=== PATIENT | female | born 1950 | race Caucasian/White ===

== ENCOUNTER 2025-02-18 04:42 | Observation (INO) | payer MEDICARE, OTHER, SELFPAY ==
[2025-02-17 22:41] VITALS: BP 185/96
[2025-02-17 23:07] LABS: Hematocrit 42.1 % (37.0-47.0); Hemoglobin 13.9 g/dL (12.0-16.0); Mean Corp Hgb Conc. 33.0 g/dL (33.0-37.0); Mean Corpuscular Volume 90.9 fL (81.0-99.0); Nucleated Red Blood Cells % 0 %; Platelet Count 244 10^3/uL (130-400); Red Cell Dist. Width 13.2 % (11.5-14.5)
[2025-02-17 23:27] LABS: ALT (SGPT) 19 U/L (0-35); AST (SGOT) 26 U/L (14-36); Albumin 4.5 g/dl (3.5-5.0); Alkaline Phosphatase 71 U/L (38-126); Blood Urea Nitrogen 17 mg/dl (7-17); Calcium 9.4 mg/dl (8.4-10.2); Carbon Dioxide 32 mmol/L (22-30); Chloride 101 mmol/L (98-107); Glucose 189 mg/dl (70-99); Lipase 247 U/L (23-300); Potassium 4.1 mmol/L (3.5-5.1); Sodium 141 mmol/L (135-145); Total Protein 6.9 g/dl (6.3-8.2); eGFR > 60.00
[2025-02-18] VITALS (21 sets, daily range): BP systolic 138–217; BP diastolic 56–82; BMI 29.3; BMI 28.5
--- NOTE | 2025-02-18 00:17 | ED.GENMED ---
Addendum entered and electronically signed by Rom Owusu DO 02/18/25 07:00:
Note:
CHIEF COMPLAINT(S)
Blood pressure issues.
HISTORY OF PRESENT ILLNESS
The patient is a 74-year-old female presenting with elevated blood pressure. Her condition has improved slightly, as noted by the statement, 'your blood pressures coming down.' The plan includes a hospital stay to ensure stabilization and evaluation
before discharge. The patient mentioned her son visiting and returning home to sleep before going to work, indicating family involvement and support during her hospital visit.
PHYSICAL EXAM
- General: Alert, no acute distress.
- Skin: Warm, dry.
- Head: Normocephalic, atraumatic.
- Neck: Supple, trachea midline.
- Eye, Ears, Nose, Mouth, and Throat: Oral mucosa moist.
- Cardiovascular: Normal peripheral perfusion, No edema.
- Respiratory: Respirations are non-labored.
- Gastrointestinal: Abdomen nondistended
- Back: Normal range of motion, Normal alignment.
- Musculoskeletal: Normal range of motion, normal strength.
- Neurological: Alert and oriented to person, place, time, and situation, No focal neurological deficit observed.
- Psychiatric: Cooperative, appropriate mood & affect.
PLAN
The plan is for the patient to be admitted to the hospital for further monitoring and to ensure stabilization of blood pressure before considering discharge.
DIFFERENTIAL DIAGNOSIS
The Differential Diagnosis includes, in no particular order and is not limited to:
- Hypertension
- Hypertensive crisis
- Anxiety-related blood pressure elevation
- Cardiovascular disease
- Renal artery stenosis
- Primary hyperaldosteronism
- Pheochromocytoma
- Endocrine disorders
- Medication effects or interactions
- Dehydration
Patient was seen in conjunction with the PA. I have reviewed and agree with his history and treatment plan.
Original Note:
History of Present Illness
<Adilson Elizabeth PA-C - Last Filed: 02/18/25 05:20>
General
Chief Complaint: Blood Pressure Problem
Time Seen by Provider: 02/18/25 00:02
History of Present Illness
History of Present Illness:
74-year-old female with history of hypertension, hyperlipidemia, and qoe-pftnbet-ujpqueswx diabetes presents to the emergency department for evaluation of abrupt onset of lightheadedness, sweating, and nausea with vomiting that occurred this
evening. States it occurred sometime after dinner. There was no associated chest pain, shortness of breath, or abdominal pain. Her symptoms are improved at this time. Denies any falls but felt very unsteady. Has been compliant with her blood
pressure medicines today but states that she noted a markedly elevated blood pressure on a home cuff episode greater than 240/110.
Review of Systems
<Adilson Elizabeth PA-C - Last Filed: 02/18/25 05:20>
Review of Systems
Allergies reviewed?: Yes
All Other Systems: ROS reviewed and negative except as documented in HPI and ROS
Phy Exam
<Adilson Elizabeth PA-C - Last Filed: 02/18/25 05:20>
Physical Exam
Physical Exam:
GEN: Well appearing, NAD, WDWN
HEENT: Oral mucosa moist, no scleral icterus, no nasal congestion
Cardiac: Regular rate
Lung: No respiratory distress, no tachypnea
MSK: No gross deformity or injuries
Skin: Good color, no pallor or jaundice, no rashes
Neuro: AO x3; CN II-XII grossly intact. BUE strength 5/5 in all ellis, sensation intact and symmetric. BLE strength 5/5 in all ellis, sensation intact and symmetric. Gait steady
Psych: Calm, cooperative
Course
<Adilson Elizabeth PA-C - Last Filed: 02/18/25 05:20>
Orders/Labs/Results
Orders:
Orders
02/17/25 22:45
EKG [Electrocardiogram (*1)] Urgent
Reason for Study: Hypertension, Benign
02/17/25 22:46
EKG- Treatment ONCE
02/17/25 22:59
Complete Blood Count/With Diff Urgent
Comprehensive Metabolic Panel Urgent
Lipase Urgent
02/18/25 00:39
Troponin I Urgent
02/18/25 01:34
HydrALAZINE [Apresoline] 10 mg IV NOW STA
02/18/25 01:53
CT Head W/o Iv Contrast Urgent
Comment:
Reason For Exam: HTN crisis w/ dizziness
02/18/25 04:11
Acetaminophen [Tylenol] 650 mg PO NOW STA
02/18/25 04:15
Admit/Transfer Patient As Directed
Co-Sign Provider:
Level of Care: Observation services
Assign to:: Telemetry
Physician / Group: Lul
Diagnosis: Hypertensive urgency
Reason for Telemetry: Other
Other Reason for Telemetry: hypertensive urgency
Date to Stop Telemetry: 02/20/25
Time to Stop Telemetry: 11:00
PRN Pain Medication Management As Directed
May give lesser potent ordered pain med per pt: Yes
preference::
Protocol:: Medication orders for pain may be administered in a
manner that supports deferring to patient preference
when the pt is:
- Requesting an ordered lesser potent pain medication.
Least to most potent pain medications are defined
as: acetaminophen < NSAID < tramadol < opioids
(morphine, oxycodone, hydromorphone).
- Requesting a lesser dose of the same medication IF
ORDERED.
- Requesting a less intrusive route of administration
if both routes are prescribed by the provider (PO <
IV).
02/18/25 04:16
Code Status As Directed
Resuscitation Status: Full Code
02/20/25 11:00
DC Protocol for Telemetry ONCE
Abnormal Lab Results
02/17/25
22:59
WBC 12.8 H 10^3/uL
(4.8-10.8)
Absolute Neuts (auto) 8.9 H 10^3/uL
(1.4-6.5)
Absolute Monos (auto) 0.9 H 10^3/uL
(0.1-0.6)
Carbon Dioxide 32 H mmol/L
(22-30)
Glucose 189 H mg/dl
(70-99)
02/17/25 22:59
02/17/25 22:59
Vital Signs
Initial and Last Documented VS:
Initial Vital Signs
Temp Pulse Resp BP Pulse Ox
97.7 F 66 20 185/96 98
02/17/25 22:41 02/17/25 22:41 02/17/25 22:41 02/17/25 22:41 02/17/25 22:41
Last Documented Vital Signs
Temp Pulse Resp BP Pulse Ox
97.7 F 66 18 157/66 95
02/17/25 22:41 02/18/25 01:43 02/18/25 01:18 02/18/25 03:30 02/18/25 00:19
<Rom Owusu, DO - Last Filed: 02/18/25 03:32>
Orders/Labs/Results
Orders:
Orders
02/17/25 22:45
EKG [Electrocardiogram (*1)] Urgent
Reason for Study: Hypertension, Benign
02/17/25 22:46
EKG- Treatment ONCE
02/17/25 22:59
Complete Blood Count/With Diff Urgent
Comprehensive Metabolic Panel Urgent
Lipase Urgent
02/18/25 00:39
Troponin I Urgent
02/18/25 01:34
HydrALAZINE [Apresoline] 10 mg IV NOW STA
02/18/25 01:53
CT Head W/o Iv Contrast Urgent
Comment:
Reason For Exam: HTN crisis w/ dizziness
02/18/25 04:11
Acetaminophen [Tylenol] 650 mg PO NOW STA
02/18/25 04:15
Admit/Transfer Patient As Directed
Co-Sign Provider:
Level of Care: Observation services
Assign to:: Telemetry
Physician / Group: Lul
Diagnosis: Hypertensive urgency
Reason for Telemetry: Other
Other Reason for Telemetry: hypertensive urgency
Date to Stop Telemetry: 02/20/25
Time to Stop Telemetry: 11:00
PRN Pain Medication Management As Directed
May give lesser potent ordered pain med per pt: Yes
preference::
Protocol:: Medication orders for pain may be administered in a
manner that supports deferring to patient preference
when the pt is:
- Requesting an ordered lesser potent pain medication.
Least to most potent pain medications are defined
as: acetaminophen < NSAID < tramadol < opioids
(morphine, oxycodone, hydromorphone).
- Requesting a lesser dose of the same medication IF
ORDERED.
- Requesting a less intrusive route of administration
if both routes are prescribed by the provider (PO <
IV).
02/18/25 04:16
Code Status As Directed
Resuscitation Status: Full Code
02/20/25 11:00
DC Protocol for Telemetry ONCE
Abnormal Lab Results
02/17/25
22:59
WBC 12.8 H 10^3/uL
(4.8-10.8)
Absolute Neuts (auto) 8.9 H 10^3/uL
(1.4-6.5)
Absolute Monos (auto) 0.9 H 10^3/uL
(0.1-0.6)
Carbon Dioxide 32 H mmol/L
(22-30)
Glucose 189 H mg/dl
(70-99)
02/17/25 22:59
02/17/25 22:59
Vital Signs
Initial and Last Documented VS:
Initial Vital Signs
Temp Pulse Resp BP Pulse Ox
97.7 F 66 20 185/96 98
02/17/25 22:41 02/17/25 22:41 02/17/25 22:41 02/17/25 22:41 02/17/25 22:41
Last Documented Vital Signs
Temp Pulse Resp BP Pulse Ox
97.7 F 66 18 157/66 95
02/17/25 22:41 02/18/25 01:43 02/18/25 01:18 02/18/25 03:30 02/18/25 00:19
<Adilson Elizabeth PA-C - Last Filed: 02/18/25 05:20>
MDM/Problems Addressed
MDM/Problems Addressed:
74-year-old female presents with sudden onset of dizziness and nausea with vomiting. Suspect this was a acute hypertensive crisis evidenced by the patient's markedly elevated blood pressure, she is symptomatic and feels her blood pressure [place]
markedly elevated. No chest pain to suggest ACS. Due to advanced age and gait instability will admit for hypertensive crisis
<Adilson Elizabeth PA-C - Last Filed: 02/18/25 05:20>
Comment
Comment:
EKG independently interpreted by me shows normal sinus rhythm at a rate of [address] changes suspicious for ischemia
*Pulse Oximetry
SaO2: 98
Oxygen Mode of Delivery: Room air
Patient hypoxic: no
*Critical Care Note
Total Time (30-74mins, 75-104mins- exclusive of procedures): Not Applicable
ED Attending Note
<Adilson Elizabeth PA-C - Last Filed: 02/18/25 05:20>
-
Portions of this chart may have been created with voice recognition software.� Occasional wrong word or��sound alike� substitutions may have occurred due to the inherent limitations of voice recognition software.
<Rom Owusu DO - Last Filed: 02/18/25 03:32>
ED Attending Note
Patient seen and examined by attending physician: Yes
I performed the substantive portion of visit, reviewed & personally made and approve the management plan that is documented in note by myself or JHONATAN.: Yes
ED Attending Note:
74-year-old female admitted to the hospitalist service for hypertension, and hypertensive urgency. Patient had headache which has improved. Patient has no complaints at time of exam. Patient was seen in conjunction with the PA. I have reviewed
and agree with his history and treatment plan. On my independent physical exam patient awake, alert, and oriented x 3. She does state that her symptoms have mostly resolved. She is resting comfortably. No respiratory distress. Patient to be
admitted to the hospitalist service
Discharge Plan
Departure
Patient Disposition: Admit
Date of Disposition: 02/18/25
Time of Disposition: 02:59
Admit to: Telemetry
Presentation/result/management discussed w/ accepting MD/DO: Hospitalist
Discharge Problem:
Hypertensive urgency
Interventions
Interventions:
*General Assessment Last Done: 02/17/25 22:41
*Neglect/Abuse Screening Last Done: 02/17/25 22:41
*ED COVID-19 Vaccine History Last Done: 02/18/25 00:19
*ED Influenza Vaccine History Last Done: 02/18/25 00:19
[facility] Risk Assessment Tool Last Done: 02/18/25 00:19
*Risk Screen - Suicide (C-SSRS) Last Done: 02/17/25 22:41
ED- Cardiac Assessment Last Done: 02/18/25 00:19
ED- Neurological Assessment Last Done: 02/18/25 02:38
ED- Pulmonary Assessment Last Done: 02/18/25 00:19
[2025-02-18 01:32] LABS: Troponin I 0.015 ng/ml
[2025-02-18] MEDS: APRESOLINE 10 MG IV (01:43)
--- NOTE | 2025-02-18 04:04 | HPS.HSE ---
Family Physician
-
Family Physician: Stan Magaña, DO
Chief Complaint
-
Elevated blood pressure
History of Present Illness
This is a 74-year-old woman who has a past medical history significant for nrl-fxrwueb-mvncmcmqt diabetes, hypertension, hyperlipidemia, who presents to the emergency department with episode of for elevated blood pressure.
Patient reported that she developed dizziness few hours prior to coming to the emergency department after came to take her grandchildren away. She reported that she tried to lay down and dizziness worsened. It feels more like a lightheadedness
ride and vertigo. She reports having a headache. She denies any blurry vision. She denies any double vision. She denies any numbness or tingling. She denies any focal weakness. She reported that she went to check her blood pressure and it was
217/140. She reported that she usually uses her blood pressure medications as prescribed and has not missed any doses recently. She reports that she was seen by auto dismantler about 2 weeks ago and did have elevated blood pressure on initial arrival
in the office but with blood pressure check later on after sitting down and having a discussion with auto dismantler was normal around 140/70. She states that she has been around 140/70 at home for the last 1 year and has stopped checking her blood
pressures regularly. She denies any dietary indiscretion. Patient denies any urinary symptoms.
In ED she was hypertenisve to 216 systolic, pulse rate was 66, she was satting 97% on room air. She was afebrile. ECG shows normal sinus rhythm at rate of [address] or T wave changes. No morphological changes. CT of the head showed
no acute interval changes.
She had a white count of 12.8, hemoglobin and liver normal. Electrolytes were normal, BUN and creatinine were normal. Hepatitis B dose of hydralazine her blood pressure slowly trended down and is now 157/66. Her symptoms are improved and she
states she is no longer having dizziness. She still has a mild headache.
Medical History
Past Medical History
Past Medical History: Reports HTN, Hypercholesterolemia, NIDDM and Other (New macular degeneration)
Past Surgical History: Reports Tonsilectomy and Other (Retinal surgery, right breast lumpectomy)
Social History
Tobacco: Non-smoker
Alcohol: Occasional
Drug: None
Personal:
Living: Alone
Employment: Retired
Family History
Family History: Not pertinent
Allergies / Home Medications
Allergies reflects when Allergies were last updated in [facility].
Home Medications with original date entered in [facility]
Allergy/Medication List:
Allergies
Allergy/AdvReac Type Severity Reaction Status Date / Time
No Known Allergies Allergy Unverified 02/17/25 22:40
Home Medications
atorvastatin 40 mg tablet 40 mg PO DAILY 02/18/25
bisoprolol fumarate 10 mg tablet 10 mg PO BID 02/18/25
hydrochlorothiazide 25 mg tablet 25 mg PO DAILY 02/18/25
metformin 500 mg tablet,extended release 24 hr 2,000 mg PO DAILY 02/18/25
Review of Systems
-
Constitutional: Reports No Symptoms
EENT: Reports No Symptoms
Respiratory: Reports No Symptoms
Cardiac: Reports No Symptoms
Abdomen/GI: Reports No Symptoms
: Reports No Symptoms
Musculoskeletal: Reports No Symptoms
Skin: Reports No Symptoms
Neurological: Reports Dizzy and Headache
Endocrine: Reports No Symptoms
Hematologic/Lymphatic: Reports No Symptoms
Psych: Reports No Symptoms
Physical Exam
Vital Signs
Vital Signs
Temp Pulse Resp BP Pulse Ox
97.7 F 66 18 157/66 95
02/17/25 22:41 02/18/25 01:43 02/18/25 01:18 02/18/25 03:30 02/18/25 00:19
Physical Exam
General: Well Developed, Well Nourished and No Apparent Distress
HEENT: NormoCephalic, Moist mucous membranes and Atraumatic
Respiratory: Clear
Cardiac: S1/S2 and Regular Rhythm; No Murmur or Rub
GI: Soft, Non Tender, Non Distended and Normal Bowel Sounds; No Organomegaly
Rectal: Deferred by Provider
Musculoskeletal: No Clubbing, No Cyanosis and No Edema
Skin: No Rash
Neuro: AO x 3 and Nonfocal/grossly intact
Laboratory Results
-
02/17/25 22:59
02/17/25 22:59
Laboratory Results
Total Bilirubin 0.5 mg/dl (0.2-1.3) 02/17/25 22:59
AST 26 U/L (14-36) 02/17/25 22:59
ALT 19 U/L (0-35) 02/17/25 22:59
Alkaline Phosphatase 71 U/L (38-126) 02/17/25 22:59
Troponin I 0.015 ng/ml 02/18/25 00:39
Lipase 247 U/L (23-300) 02/17/25 22:59
Data Reviewed
-
CT Scan: Report Reviewed by me
Medical Tests (Nuc Med, Echo, EKG etc): Image Personally Visualized and interpreted
Lab Data: Labs Reviewed by me
Old Records: Reviewed
Impression/Plan
-
IMPRESSION:
74 y.o female with h/o HTN, HLD and NIDDM presenting with uncontrolled HTN, dizziness and headache c/w HTN urgency. SBP was 216/140 prior to arrival. ECG unremarkable. CT head unremarkable. Neurologically intact. NO chest pain. Reports
compliance. Symptoms improved after hydralzine with control of bp to 157/66
PLAN:
Hypertensive urgency
- admit to telemetry observation
- continue hydralazine 10mg iv prn
- continue patients bisoprolol and hctz for now
- if requiring additional doses of hydralazine, start additional bp meds such as norvasc
- serial examination
DM II
- continue metformin for now
- sliding scale insulin
- continue atorvastatin
DVT PPX - SCD
Code status - Full Code
[2025-02-18] MEDS: TYLENOL 650 MG PO ×2 (04:30→15:31)
--- NOTE | 2025-02-18 07:08 | PTCARENOTE ---
Pt recieved from ED. A and Ox3. Bed alarm plugged in, call lund within reach.
[2025-02-18 09:14] LABS: Hematocrit 42.0 % (37.0-47.0); Hemoglobin 14.6 g/dL (12.0-16.0); Mean Corp Hgb Conc. 34.8 g/dL (33.0-37.0); Mean Corpuscular Volume 89.9 fL (81.0-99.0); Platelet Count 269 10^3/uL (130-400); Red Cell Dist. Width 13.1 % (11.5-14.5)
[2025-02-18 09:42] LABS: Blood Urea Nitrogen 15 mg/dl (7-17); Calcium 9.5 mg/dl (8.4-10.2); Carbon Dioxide 29 mmol/L (22-30); Chloride 100 mmol/L (98-107); Estimated Creatinine Clearance 85 ml/min; Glucose 140 mg/dl (70-99); Potassium 3.6 mmol/L (3.5-5.1); Sodium 140 mmol/L (135-145); eGFR > 60.00
[2025-02-18] MEDS: LIPITOR 40 MG PO (10:20)
[2025-02-18] MEDS: GLUCOPHAGE XR EXTENDED RELEASE 2000 MG PO (10:20)
[2025-02-18] MEDS: ORETIC 25 MG PO (10:22)
[2025-02-18] MEDS: ZEBETA 10 MG PO ×2 (10:22→19:45)
--- NOTE | 2025-02-18 11:48 | W.PN.HOSP.TC ---
Today's Communication/Plan
-
Monitor vital signs see plan
Start nifedipine
Continue bisoprolol, HCTZ
Discussed with son
Patient will need adequate blood pressure control, will need to follow-up closely with PCP and cardiology
Nonbillable note
Assessment / Plan
Assessment / Plan
General: Well Developed, Well Nourished and No Apparent Distress
HEENT: NormoCephalic, Moist mucous membranes and Atraumatic
Respiratory: Clear
Cardiac: S1/S2 and Regular Rhythm; No Murmur or Rub
GI: Soft, Non Tender, Non Distended and Normal Bowel Sounds
Musculoskeletal: No Edema
Neuro: AO x 3 and Nonfocal/grossly intact
Hypertensive urgency
- continue patients bisoprolol and hctz for now
Blood pressure still high, start nifedipine
Ideally would also benefit from GLORIA inhibitor however would not make a lot of medication changes at this time. Patient should follow-up with PCP and cardiology soon outpatient
Discussed with son
DM II
- continue metformin for now
- sliding scale insulin
- continue atorvastatin
DVT PPX - lovenox
Code status - Full Code
Anticipated Discharge: Within 24 hours
Subjective/Interval History
-
Date of Service: February 18, 2025
denies pain
Objective Data
-
Labs:
Laboratory Results
02/18/25
09:06
WBC 12.6 H
Hgb 14.6
Hct 42.0
Plt Count 269
Sodium 140
Potassium 3.6
Chloride 100
Carbon Dioxide 29
BUN 15
Creatinine 0.5 L
Glucose 140 H
Calcium 9.5
Vital Signs:
Vital Signs
Temp Pulse Resp BP Pulse Ox
97.7 F 68 18 172/69 98
02/18/25 07:55 02/18/25 07:55 02/18/25 07:55 02/18/25 07:55 02/18/25 07:55
[2025-02-18] MEDS: OCUVITE SOFTGEL 1 CAP PO (12:23)
[2025-02-18] MEDS: PROCARDIA XL (EXTENDED RELEASE) 30 MG PO ×2 (12:23→19:45)
[2025-02-18] MEDS: LOW STRENGTH ASPIRIN 81 MG PO (12:24)
--- NOTE | 2025-02-18 12:27 | CM ---
CM reviewed chart, patient seen bedside, initial assessment completed.
Patient resides independently in a split level home, no steps through garage, two steps from front door.
8 steps up, 5 steps down to family room.
Patient denies DME, VN/SNF.
PCP Stan Magaña, [facility], confirms prescription coverage.
Patient confirms family will transport home upon d.c.
VILLA verbally reviewed, provided with copy, placed in chart.
Plan; home no needs anticipated
[2025-02-18 12:33] LABS: Glucose - Point of Care 153 mg/dl (70-99)
[2025-02-18] MEDS: NOVOLOG FLEXPEN-LOW RESISTANCE SC ×2 (12:34→17:09)
[2025-02-18] MEDS: APRESOLINE 5 MG IV (15:07)
[2025-02-18 16:58] LABS: Glucose - Point of Care 145 mg/dl (70-99)
[2025-02-18] MEDS: LOVENOX 40 MG SC (17:10)
[2025-02-18 21:51] LABS: Glucose - Point of Care 165 mg/dl (70-99)
[2025-02-19 03:03] VITALS: BP 135/74
[2025-02-19 07:00] VITALS: BP 140/59
[2025-02-19 08:23] LABS: Glucose - Point of Care 163 mg/dl (70-99)
[2025-02-19 08:41] LABS: Hematocrit 41.8 % (37.0-47.0); Hemoglobin 14.2 g/dL (12.0-16.0); Mean Corp Hgb Conc. 34.0 g/dL (33.0-37.0); Mean Corpuscular Volume 88.2 fL (81.0-99.0); Platelet Count 254 10^3/uL (130-400); Red Cell Dist. Width 13.2 % (11.5-14.5)
[2025-02-19] MEDS: NOVOLOG FLEXPEN-LOW RESISTANCE 1 UNITS SC (08:56)
[2025-02-19] MEDS: GLUCOPHAGE XR EXTENDED RELEASE 2000 MG PO (08:56)
[2025-02-19] MEDS: ORETIC 25 MG PO (08:57)
[2025-02-19] MEDS: PROCARDIA XL (EXTENDED RELEASE) 30 MG PO (08:57)
[2025-02-19] MEDS: ZEBETA 10 MG PO (08:57)
[2025-02-19] MEDS: OCUVITE SOFTGEL 1 CAP PO (08:57)
[2025-02-19] MEDS: LOW STRENGTH ASPIRIN 81 MG PO (08:58)
[2025-02-19] MEDS: LIPITOR 40 MG PO (08:58)
[2025-02-19 09:05] LABS: Blood Urea Nitrogen 14 mg/dl (7-17); Calcium 9.6 mg/dl (8.4-10.2); Carbon Dioxide 28 mmol/L (22-30); Chloride 97 mmol/L (98-107); Estimated Creatinine Clearance 85 ml/min; Glucose 135 mg/dl (70-99); Potassium 3.6 mmol/L (3.5-5.1); Sodium 136 mmol/L (135-145); eGFR > 60.00
--- NOTE | 2025-02-19 10:05 | W.PN.HOSP.TC ---
Today's Communication/Plan
-
Monitor vital signs see plan
Blood pressure now much better on nifedipine
Discharge today
Discussed with son
Time of discharge 38 minutes
Assessment / Plan
Assessment / Plan
General: Well Developed, Well Nourished and No Apparent Distress
HEENT: NormoCephalic, Moist mucous membranes and Atraumatic
Respiratory: Clear
Cardiac: S1/S2 and Regular Rhythm; No Murmur or Rub
GI: Soft, Non Tender, Non Distended and Normal Bowel Sounds
Musculoskeletal: No Edema
Neuro: AO x 3 and Nonfocal/grossly intact
Hypertensive urgency
- continue patients bisoprolol and hctz for now
Blood pressure still high, start nifedipine. Continue with nifedipine 30 mg twice daily. Discussed with patient that if she does get dizzy then discontinue hydrochlorothiazide.Since patient pharmacy is closed asked our inpatient pharmacy to
dispense 2 pills prior to discharge. Patient will fill her routine nifedipine tomorrow
Ideally would also benefit from GLORIA inhibitor however would not make a lot of medication changes at this time. Patient should follow-up with PCP and cardiology soon outpatient
Discussed with son
DM II
- continue metformin for now
- sliding scale insulin
- continue atorvastatin
DVT PPX - lovenox
Code status - Full Code
Anticipated Discharge: Today
Subjective/Interval History
-
Date of Service: February 19, 2025
denies pain
Objective Data
-
Labs:
Laboratory Results
02/19/25
07:57
WBC 10.4
Hgb 14.2
Hct 41.8
Plt Count 254
Sodium 136
Potassium 3.6
Chloride 97 L
Carbon Dioxide 28
BUN 14
Creatinine 0.5 L
Glucose 135 H
Calcium 9.6
Vital Signs:
Vital Signs
Temp Pulse Resp BP Pulse Ox
98.2 F 68 16 140/59 95
02/19/25 07:00 02/19/25 08:57 02/19/25 07:00 02/19/25 08:57 02/19/25 07:00
I&O
02/18/25 02/19/25 02/20/25
06:59 06:59 06:59
Intake Total 1200 / 1200
Balance 1200 / 1200
--- NOTE | 2025-02-19 10:11 | W.DCSUMMARY ---
Discharge Summary
Discharge Data
Date of Admission: 02/18/25
Date of Discharge: 02/19/25
-
Pending Results: No
Hospital Course
74-year-old female with past medical history of diabetes mellitus, hypertension came to the hospital with headache and hypertensive urgency. Patient was already on bisoprolol and hydrochlorothiazide. Her blood pressure was still uncontrolled so
she was started on nifedipine. After starting nifedipine her blood pressure continue to improve and her symptoms resolved. Since her symptoms were better, she was then discharged on nifedipine with instructions to follow-up with all her physicians
outpatient. She was instructed strictly to monitor her blood pressure at home and to discuss those readings with her outpatient primary care provider and manager of [facility].
Discharge Plan
-
Patient Disposition: Home (Routine Discharge)
Discharge Diagnosis/Procedures: Hypertensive urgency
Condition: Fair
Diet: As tolerated
Activity: As tolerated
Driving Restrictions: As prior to admission
Bathing Restrictions: None
Activity Restrictions/Additional Instructions:
Please follow-up with your manager of [employer] soon outpatient
Continue to check your blood pressure twice daily and write those numbers down. Please follow-up with your physician with those numbers to see if blood pressure medication titration needs to be done.
if does get dizzy then discontinue hydrochlorothiazide and also check your blood pressure
Referrals:
Stan Magaña, [Family Provider] - in less than 1 week
Prescriptions:
New
nifedipine 30 mg tablet extended release
30 mg PO BID Qty: 60 0RF
Continued
atorvastatin 40 mg tablet
40 mg PO DAILY
bisoprolol fumarate 10 mg tablet
10 mg PO BID
hydrochlorothiazide 25 mg tablet
25 mg PO DAILY
metformin 500 mg tablet extended release 24 hr
2,000 mg PO DAILY
aspirin 81 mg Tablet
81 mg PO DAILY
PreserVision AREDS-2 250-90-40-1 mg Capsule
1 tab PO BID
Discharge Orders:
Discharge Patient (As Directed); Ordered 02/19/25
Ordered By: Charlie Xie
Discharge Date and Time
Discharge Date/Time: 02/19/25 11:58
Print Language: LITHUANIAN
[2025-02-19 11:00] VITALS: BP 134/64
--- NOTE | 2025-02-19 11:26 | TRANSFER ---
Patient for discharge today. Discharge instructions reviewed. Patient provided with x 2 doses of Procardia for this evening and tomorrow morning. Prescription sent to patient's [facility] pharmacy. IV removed. Tele removed. Patient waiting for her daughter
to tile picker for discharge to home.
[2025-02-19 11:53] LABS: Glucose - Point of Care 174 mg/dl (70-99)
--- NOTE | 2025-02-19 12:14 | CM ---
Patient cleared for discharge to home today. She needs a nebulizer and was unable to locate a pharmacy that is open today. [facility] is closed until tomorrow and [facility] does not carry nebulizers.
Dr. Chase notified of same.
Plan: Anticipate discharge to home tomorrow when nebulizer is available.
== END 2025-02-19 11:58 | disposition home or self-care (01) ==
LOC: 4 WEST ACU 04:42
PROVIDERS: Emergency Medicine; Physician Assistant; ADMITTING PHYSICIAN Internal Medicine; ATTENDING PHYSICIAN Internal Medicine; EMERGENCY PHYSICIAN Student in an Organized Health Care Education/Training Program; FAMILY PHYSICIAN Student in an Organized Health Care Education/Training Program
DX: I16.0 Hypertensive urgency (principal); I10 Essential (primary) hypertension; E11.9 Type 2 diabetes mellitus without complications; E78.00 Pure hypercholesterolemia, unspecified; R42 Dizziness and giddiness; R11.2 Nausea with vomiting, unspecified; R94.31 Abnormal electrocardiogram [ECG] [EKG]; R26.89 Other abnormalities of gait and mobility; R51.9 Headache, unspecified; Z79.899 Other long term (current) drug therapy; Z79.84 Long term (current) use of oral hypoglycemic drugs; Z60.2 Problems related to living alone
CPT/HCPCS: 70450; 80048; 80053; 82962; 83690; 84484; 85025; 85027; 93005; 96374; 99285; G0378